=== PATIENT | female | born 1950 | race Two or more races ===

== ENCOUNTER 2018-01-20 17:50 | Inpatient (IN) | payer SELFPAY ==
[2018-01-20 18:21] LABS: ADD MAN DIFF? NO
[2018-01-20 18:22] LABS: BASO # 0.1 x10^3/uL (0.0-0.2); BASO % 1 % (0-3); EOS # 0.3 x10^3/uL (0.0-0.7); EOS % 3 % (0-3); HEMATOCRIT 42.6 % (36.0-47.0); HEMOGLOBIN 14.4 g/dL (12.0-15.5); LYMPH # 3.2 x10^3/uL (1.0-4.8); LYMPH % 34 % (24-48); MEAN CORPUSCULAR HEMOGLOBIN 30 pg (25-35); MEAN CORPUSCULAR HGB CONC 34 g/dL (31-37); MEAN CORPUSCULAR VOLUME 89 fL (79-100); MONO # 0.8 x10^3/uL (0.0-1.1); MONO % 8 % (0-9); NEUT # 5.1 x10^3uL (1.8-7.7); NEUT % 54 % (31-73); PLATELET COUNT 320 x10^3/uL (140-400); RED BLOOD COUNT 4.78 x10^6/uL (3.50-5.40); RED CELL DISTRIBUTION WIDTH 13.3 % (11.5-14.5); WHITE BLOOD COUNT 9.3 x10^3/uL (4.0-11.0)
[2018-01-20 18:34] LABS: ANION GAP 10 (6-14); BLOOD UREA NITROGEN 13 mg/dL (7-20); CALCIUM 9.2 mg/dL (8.5-10.1); CARBON DIOXIDE 25 mmol/L (21-32); CHLORIDE 104 mmol/L (98-107); CREATININE 0.8 mg/dL (0.6-1.0); GFR 71.5; GLUCOSE 155 mg/dL (70-99); POTASSIUM 4.4 mmol/L (3.5-5.1); SODIUM 139 mmol/L (136-145)
[2018-01-20 18:39] LABS: ALBUMIN 3.7 g/dL (3.4-5.0); ALK PHOS 69 U/L (46-116); ALT (SGPT) 24 U/L (14-59); AST (SGOT) 14 U/L (15-37); DIRECT BILIRUBIN 0.1 mg/dL (0.0-0.2); LIPASE 188 U/L (73-393); MAGNESIUM 2.2 mg/dL (1.8-2.4); TOTAL BILIRUBIN 0.2 mg/dL (0.2-1.0); TOTAL PROTEIN 7.9 g/dL (6.4-8.2)
[2018-01-20 18:40] LABS: BILIRUBIN,URINE NEGATIVE (NEG); CLARITY,URINE CLEAR; COLOR,URINE YELLOW; GLUCOSE,URINE NEGATIVE (NEG); NITRITE,URINE NEGATIVE (NEG); PROTEIN,URINE NEGATIVE (NEG-TRACE); UROBILINOGEN,URINE 0.2 mg/dL (0.2 mg/dL)
[2018-01-20 18:40] LABS: TROPONINI < 0.017 ng/mL (0.000-0.055)
[2018-01-20] MEDS ORDERED: CONTRAST GIVEN MC (18:45)
[2018-01-20] MEDS: IOHEXOL 300 MG/ML 100ML VIAL. IV (18:47)
[2018-01-20 18:48] LABS: THYROID STIM HORMONE (TSH) 7.298 uIU/mL (0.358-3.74)
[2018-01-20 18:49] LABS: BACTERIA,URINE 0 /HPF (0-FEW); RBC,URINE 0 /HPF (0-2); WBC,URINE OCC /HPF (0-4)
[2018-01-20 18:50] LABS: SQUAMOUS EPITHELIAL CELL,UR OCC /LPF
[2018-01-20 18:51] LABS: NT-PRO BNP 116 pg/mL (0-124)
[2018-01-20 18:51] LABS: CKMB MASS < 0.5 ng/mL (0.0-3.6); CREATINE KINASE 32 U/L (26-192)
[2018-01-20] MEDS: MORPHINE SULFATE 4 MG/ML DISP.SYRIN. IV (19:04)
[2018-01-20] MEDS: ASPIRIN CHEWABLE 81 MG TABLET. PO (19:05)
[2018-01-20] MEDS: 0.9 % SODIUM CHLORIDE 10 ML DISP.SYRIN. IV (19:06)
[2018-01-20] MEDS: IV NORMAL SALINE 1000ML BAG 1,000 ML IV (19:10)
[2018-01-20 19:22] LABS: INFLUENZA A PATIENT NEGATIVE (NEGATIVE); INFLUENZA B PATIENT NEGATIVE (NEGATIVE); OBC FLU VALID
[2018-01-21] MEDS: LEVOTHYROXINE 25 MCG TABLET. PO (06:28)
[2018-01-21 08:11] LABS: POC GLUCOSE 146 mg/dL (70-99)
[2018-01-21] MEDS ORDERED: INFLUENZA VAX SCREEN BY RX. MC (09:00)
[2018-01-21] MEDS: FLU VACC QS2017-18 (36MOS+)/PF 0.5 ML SYRINGE. VAX IM (09:34)
[2018-01-21 11:11] LABS: POC GLUCOSE 149 mg/dL (70-99)
[2018-01-21] MEDS ORDERED: ONDANSETRON PF 4 MG/2 ML VIAL. IV (11:30)
[2018-01-21] MEDS ORDERED: ONDANSETRON ODT 4 MG TAB.RAPDIS. PO (11:30)
[2018-01-21 12:17] LABS: FREE T4 0.85 ng/dL (0.76-1.46)
[2018-01-21] MEDS: PANTOPRAZOLE 40 MG TABLET.DR. PO (13:32)
[2018-01-21 17:07] LABS: POC GLUCOSE 123 mg/dL (70-99)
[2018-01-21] MEDS: glyBURIDE 5 MG TABLET PO (17:48)
[2018-01-21 22:02] LABS: POC GLUCOSE 146 mg/dL (70-99)
[2018-01-22 02:18] LABS: HEMOGLOBIN A1C 6.4 % (4.8-5.6)
[2018-01-22 07:14] LABS: POC GLUCOSE 131 mg/dL (70-99)
[2018-01-22] MEDS: REGADENOSON 0.4 MG/5 ML DISP.SYRIN. IV (11:01)
[2018-01-22] MEDS: glyBURIDE 5 MG TABLET PO (11:27)
[2018-01-22] MEDS: ASPIRIN 325 MG TABLET PO (11:27)
[2018-01-22] MEDS: PANTOPRAZOLE 40 MG TABLET.DR. PO (11:27)
[2018-01-22] MEDS: LEVOTHYROXINE 25 MCG TABLET. PO (11:27)
[2018-01-22 11:41] LABS: POC GLUCOSE 212 mg/dL (70-99)
== END 2018-01-22 14:28 | disposition home or self-care (01) | DRG 313 ==
LOC: ER 17:50 → 5 SOUTH 20:00
DX: R07.89 Other chest pain (principal); E03.9 Hypothyroidism, unspecified; K21.9 Gastro-esophageal reflux disease without esophagitis; E11.9 Type 2 diabetes mellitus without complications; E78.5 Hyperlipidemia, unspecified; F41.9 Anxiety disorder, unspecified; I10 Essential (primary) hypertension; Z79.84 Long term (current) use of oral hypoglycemic drugs; Z79.899 Other long term (current) drug therapy; Z82.49 Family history of ischemic heart disease and other diseases of the circulatory system; Z87.11 Personal history of peptic ulcer disease
CPT/HCPCS: 36415; 70250; 70551; 71045; 71275; 78452; 80048; 80076; 81001; 82553; 82962; 83036; 83690; 83735; 83880; 84439; 84443; 84481; 84484; 85025; 87086; 87804; 87804-59; 90686; 93005; 93017; 96374; 96375; 96376; A9500; J2060; J2270; J2785; J7030; Q9967